=== PATIENT | female | born 1990 | race Caucasian/White ===

== ENCOUNTER 2016-11-10 12:00 | Emergency (ER) | payer OTHER ==
[2016-11-10] MEDS ORDERED: KETOROLAC TROMETHAMINE 10 MG TABLET PO ONE (14:15)
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
[2016-11-10 17:03] VITALS: BP 112/61
== END 2016-11-10 17:00 | disposition home or self-care (01) ==
LOC: ER 12:00
DX: S96.912A Strain of unspecified muscle and tendon at ankle and foot level, left foot, initial encounter (principal); S86.912A Strain of unspecified muscle(s) and tendon(s) at lower leg level, left leg, initial encounter; V47.5XXA Car driver injured in collision with fixed or stationary object in traffic accident, initial encounter; M54.2 Cervicalgia; F17.200 Nicotine dependence, unspecified, uncomplicated
CPT/HCPCS: 99284; 73610; 73562; J3490

== ENCOUNTER 2016-11-12 14:34 | Emergency (ER) | payer OTHER ==
[2016-11-12] MEDS ORDERED: ONDANSETRON 4 MG TAB.RAPDIS PO ONE (14:50)
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
[2016-11-12 18:37] VITALS: BP 113/67
== END 2016-11-12 18:25 | disposition home or self-care (01) ==
LOC: ER 14:34
DX: G44.209 Tension-type headache, unspecified, not intractable (principal); R11.2 Nausea with vomiting, unspecified; V87.7XXA Person injured in collision between other specified motor vehicles (traffic), initial encounter; F17.210 Nicotine dependence, cigarettes, uncomplicated
CPT/HCPCS: 99283; 70450; S0119

== ENCOUNTER 2017-01-02 18:37 | Emergency (ER) | payer OTHER ==
--- NOTE | 2017-01-02 18:53 | ER Document Report ---
ED Medical Screen (RME) - General Stated Complaint: VAGINAL BLEEDING, ABDOMINAL PAIN Mode of Arrival: Ambulatory Information source: Patient Notes: History presents to the emergency department with abdominal pain vaginal bleeding. Patient is . . Patient reports ~10 weeks , first OB appointment with [facility] next Wed. No care yet. I have greeted and performed a rapid initial assessment of this patient. A comprehensive ED assessment and evaluation of the patient, analysis of test results and completion of the medical decision making process will be conducted by additional ED providers. TRAVEL OUTSIDE OF THE [place] IN LAST 30 DAYS: No - Related Data Allergies/Adverse Reactions: No Known Allergies Allergy (Verified 11/10/16 12:12) Past Medical History Past Surgical History: Reports: Hx Cholecystectomy - Immunizations Hx Diphtheria, Pertussis, Tetanus Vaccination: No Physical Exam - Vital signs Vitals: Temp Pulse Resp BP Pulse Ox 98.2 F 96 16 122/71 99 01/02/17 18:48 01/02/17 18:48 01/02/17 18:48 01/02/17 18:48 01/02/17 18:48 Course - Vital Signs Vital signs: Temp Pulse Resp BP Pulse Ox 98.2 F 96 16 122/71 99 01/02/17 18:48 01/02/17 18:48 01/02/17 18:48 01/02/17 18:48 01/02/17 18:48
[2017-01-02 19:26] LABS: ABSOLUTE EOSINOPHILS # (AUTO) 0.1 10^3/uL (0.0-0.6); ABSOLUTE LYMPHOCYTES (AUTO) 2.3 10^3/uL (0.5-4.7); ABSOLUTE MONOCYTES (AUTO) 0.5 10^3/uL (0.1-1.4); BASOPHILS % (AUTO) 0.5 % (0-2); HEMATOCRIT 36.2 % (36.0-47.0); HEMOGLOBIN 12.6 g/dL (12.0-15.5); HGB HCT DIFFERENCE 1.6; LYMPHOCYTES % (AUTO) 25.6 % (13-45); MEAN CORPUSCULAR HEMOGLOBIN 31.3 pg (27.0-33.4); MEAN CORPUSCULAR HGB CONC 34.7 g/dL (32.0-36.0); MEAN CORPUSCULAR VOLUME 90 fl (80-97); MONOCYTES % (AUTO) 5.9 % (3-13); RED BLOOD COUNT 4.02 10^6/uL (3.72-5.28); RED CELL DISTRIBUTION WIDTH 12.6 % (11.5-14.0)
[2017-01-02 19:40] LABS: APPEARANCE,URINE SLIGHTLY-CLOUDY; BILIRUBIN,URINE NEGATIVE (NEGATIVE); GLUCOSE, URINE NEGATIVE (NEGATIVE); KETONES,URINE NEGATIVE (NEGATIVE); LEUKOCYTE ESTERASE,URINE NEGATIVE (NEGATIVE); NITRITE,URINE NEGATIVE (NEGATIVE); PROTEIN,URINE NEGATIVE (NEGATIVE); URINE SPECIFIC GRAVITY 1.024; UROBILINOGEN,URINE NEGATIVE mg/dL (<2.0)
[2017-01-02 19:41] LABS: ALANINE AMINOTRANSFERASE 50 U/L (9-52); ALBUMIN 4.2 g/dL (3.5-5.0); ALKALINE PHOSPHATASE 56 U/L (38-126); ANION GAP 14 (5-19); ASPARTATE AMINO TRANSFERASE 24 U/L (14-36); BILIRUBIN,TOTAL 0.4 mg/dL (0.2-1.3); BLOOD UREA NITROGEN 13 mg/dL (7-20); CALCIUM 9.6 mg/dL (8.4-10.2); CARBON DIOXIDE 21 mmol/L (22-30); CHLORIDE 102 mmol/L (98-107); CREATININE RESULT 0.59 mg/dL (0.52-1.25); GLUCOSE 97 mg/dL (75-110); POTASSIUM 3.7 mmol/L (3.6-5.0); SODIUM 137.2 mmol/L (137-145)
--- NOTE | 2017-01-02 20:53 | ER Document Report ---
ED GI/ - General Chief Complaint: Vag Bleeding, +preg <12wks Stated Complaint: VAGINAL BLEEDING, ABDOMINAL PAIN Time seen by provider: 20:50 Mode of Arrival: Ambulatory Information source: Patient TRAVEL OUTSIDE OF THE [place] IN LAST 30 DAYS: No - HPI Patient complains to provider of: , Vaginal bleeding Onset: This morning Timing/Duration: Better Quality of pain: Burning Severity at maximum: Mild Severity in ED: None Pain Level: 0 Location: Suprapubic Vaginal bleeding (Compared to normal period): Spotting Associated symptoms: None Exacerbated by: Denies Relieved by: Denies Similar symptoms previously: No Recently seen / treated by doctor: No Notes: 01/02/17 20:51 Patient is a 26-year-old female presenting to the emergency room complaining of vaginal spotting that started earlier today, with mild pelvic cramping, states she is approximately 10 weeks , has her first appointment with [facility] this coming Wednesday, patient is a with no previous complications, denies any other symptoms at present time - Related Data Allergies/Adverse Reactions: No Known Allergies Allergy (Verified 01/02/17 18:52) Past Medical History - General Information source: Patient - Social History Smoking Status: Former Smoker Chew tobacco use (# tins/day): No Frequency of alcohol use: None Drug Abuse: None Family History: Reviewed & Not Pertinent Patient has suicidal ideation: No Patient has homicidal ideation: No Renal/ Medical History: Denies: Hx Peritoneal Dialysis Past Surgical History: Reports: Hx Cholecystectomy - Immunizations Hx Diphtheria, Pertussis, Tetanus Vaccination: No Review of Systems - Review of Systems Constitutional: No symptoms reported EENT: No symptoms reported Cardiovascular: No symptoms reported Respiratory: No symptoms reported Gastrointestinal: No symptoms reported Genitourinary: No symptoms reported Female Genitourinary: See HPI Musculoskeletal: No symptoms reported Skin: No symptoms reported Hematologic/Lymphatic: No symptoms reported Neurological/Psychological: No symptoms reported -: Yes All other systems reviewed and negative Physical Exam - Vital signs Vitals: Temp Pulse Resp BP Pulse Ox 98.2 F 96 16 122/71 99 01/02/17 18:48 01/02/17 18:48 01/02/17 18:48 01/02/17 18:48 01/02/17 18:48 Interpretation: Normal - General General appearance: Appears well, Alert - HEENT Head: Normocephalic, Atraumatic Eyes: Normal Pupils: PERRL - Respiratory Respiratory status: No respiratory distress Chest status: Nontender Breath sounds: Normal Chest palpation: Normal - Cardiovascular Rhythm: Regular Heart sounds: Normal auscultation Murmur: No - Abdominal Inspection: Normal Distension: No distension Bowel sounds: Normal Tenderness: Nontender Organomegaly: No organomegaly - Back Back: Normal, Nontender - Extremities General upper extremity: Normal inspection, Nontender, Normal color, Normal ROM , Normal temperature General lower extremity: Normal inspection, Nontender, Normal color, Normal ROM , Normal temperature, Normal weight bearing. No: April's sign - Neurological Neuro grossly intact: Yes Cognition: Normal Orientation: AAOx4 Nilda Coma Scale Eye Opening: Spontaneous Nilda Coma Scale Verbal: Oriented Nilda Coma Scale Motor: Obeys Commands Nilda Coma Scale Total: 15 Speech: Normal Motor strength normal: LUE, RUE, LLE, RLE Sensory: Normal - Psychological Associated symptoms: Normal affect, Normal mood - Skin Skin Temperature: Warm Skin Moisture: Dry Skin Color: Normal Course - Re-evaluation Re-evalutation: 01/02/17 20:52 Abdomen is soft and nontender, lab and imaging findings discussed with patient at bedside which are relatively unremarkable and consistent with a positive IUP measuring 10 weeks and 2 days, patient was advised to keep her appointment at [facility] that has been scheduled for Wednesday, or return if her symptoms worsen in any way, patient acknowledges understanding and agreement with this plan - Vital Signs Vital signs: Temp Pulse Resp BP Pulse Ox 98.2 F 96 16 122/71 99 01/02/17 18:48 01/02/17 18:48 01/02/17 18:48 01/02/17 18:48 01/02/17 18:48 - Laboratory Result Diagrams: 01/02/17 19:10 01/02/17 19:10 Laboratory results interpreted by me: 01/02/17 01/02/17 19:10 19:10 Carbon Dioxide 21 L Beta HCG, Quant 18653.00 H Urine Blood LARGE H - Diagnostic Test Radiology reviewed: Image reviewed, Reports reviewed Discharge - Discharge Clinical Impression: Vaginal bleeding before 22 weeks gestation Condition: Stable Disposition: HOME, SELF-CARE Instructions: Bleeding During Early ([facility]), ([facility]), Pelvic Pain in ([facility]) Additional Instructions: Follow up with your [facility] on Wednesday as scheduled. Return to the nearest emergency room immediately if symptoms worsen or any additional concerns.
[2017-01-02 21:08] VITALS: BP 124/62
== END 2017-01-02 21:06 | disposition home or self-care (01) ==
LOC: ER 18:37
DX: O20.9 Hemorrhage in early pregnancy, unspecified (principal); Z3A.10 10 weeks gestation of pregnancy; Z90.49 Acquired absence of other specified parts of digestive tract
CPT/HCPCS: 36415; 76817; 80053; 81001; 84702; 85025; 86850; 86900; 86901; 99284

== ENCOUNTER 2019-01-18 22:58 | Emergency (ER) | payer BC ==
[2019-01-18 23:06] VITALS: BP 136/97
--- NOTE | 2019-01-18 23:07 | ER Document Report ---
ED Medical Screen (RME) - General Chief Complaint: Abdominal Pain Stated Complaint: SEVERE BACK PAIN,ABDOMINAL PAIN Time Seen by Provider: 01/18/19 23:06 Primary Care Provider: CHRISTY MOREAU DO [Primary Care Provider] - Follow up as needed Mode of Arrival: Ambulatory Information source: Patient Notes: pt c/o severe left flank pain, hx recent URI's in a row. reports low grade fever I have greeted and performed a rapid initial assessment of this patient. A comprehensive ED assessment and evaluation of the patient, analysis of test results and completion of the medical decision making process will be conducted by additional ED providers. TRAVEL OUTSIDE OF THE [place] IN LAST 30 DAYS: No - Related Data Allergies/Adverse Reactions: No Known Allergies Allergy (Verified 01/02/17 18:52) Past Medical History Renal/ Medical History: Denies: Hx Peritoneal Dialysis Past Surgical History: Reports: Hx Cholecystectomy - Immunizations Hx Diphtheria, Pertussis, Tetanus Vaccination: No Physical Exam - Vital signs Vitals: Temp Pulse Resp BP Pulse Ox 97.5 F 75 18 136/97 H 100 01/18/19 23:04 01/18/19 23:04 01/18/19 23:04 01/18/19 23:04 01/18/19 23:04 Course - Vital Signs Vital signs: Temp Pulse Resp BP Pulse Ox 97.5 F 75 18 136/97 H 100 01/18/19 23:04 01/18/19 23:04 01/18/19 23:04 01/18/19 23:04 01/18/19 23:04 Doctor's Discharge - Discharge Referrals: CHRISTY MOREAU DO [Primary Care Provider] - Follow up as needed
--- NOTE | 2019-01-19 00:38 | RADIOLOGY REPORT (SQ) ---
EXAM DESCRIPTION: CT ABDOMEN PELVIS WITHOUT IV CONTRAST COMPLETED DATE/TME: 01/19/2019 00:00 CLINICAL HISTORY: 28 years, Female, LEFT flank pain COMPARISON: None. TECHNIQUE: Axial CT images of the abdomen and pelvis were obtained without contrast. Sagittal and coronal reformats were performed. DLP 542 Images stored on PACS. All CT scanners at this facility use dose modulation, iterative reconstruction, and/or weight based dosing when appropriate to reduce radiation dose to as low as reasonably achievable (ALARA). [facility]: Dose Right [facility]: CareDose [facility]: Dose Right [facility]: Teradose 4D [facility]: FitVia LIMITATIONS: None. FINDINGS: The lung bases are clear. Cholecystectomy. The liver, pancreas, spleen, and adrenal glands appear unremarkable. Both kidneys appear unremarkable. There is no evidence of urolithiasis or hydronephrosis. There is no intraperitoneal free air or fluid. There is no lymphadenopathy. The abdominal aorta is normal in caliber. The stomach, small bowel, and appendix appear unremarkable. The colon contains a moderate amount of stool. The uterus, adnexa, and urinary bladder appear unremarkable. There are no lytic or blastic bone lesions. IMPRESSION: No acute findings. No urolithiasis or hydronephrosis. TECHNICAL DOCUMENTATION: Quality ID # [id number]: Final reports with documentation of one or more dose reduction techniques (e.g., Automated exposure control, adjustment of the mA and/or kV according to patient size, use of iterative reconstruction technique) copyright 2010 [employer]- All Rights Reserved
[2019-01-19] MEDS ORDERED: ACETAMINOPHEN 325 MG TABLET PO ONE (01:01)
[2019-01-19 01:50] LABS: APPEARANCE,URINE SLIGHTLY-CLOUDY; BILIRUBIN,URINE SMALL (NEGATIVE); COLOR,URINE YELLOW; GLUCOSE, URINE NEGATIVE (NEGATIVE); KETONES,URINE NEGATIVE (NEGATIVE); LEUKOCYTE ESTERASE,URINE TRACE (NEGATIVE); NITRITE,URINE NEGATIVE (NEGATIVE); PROTEIN,URINE NEGATIVE (NEGATIVE); URINE SPECIFIC GRAVITY 1.031
[2019-01-19 03:45] LABS: ABSOLUTE EOSINOPHILS # (AUTO) 0.1 10^3/uL (0.0-0.6); ABSOLUTE LYMPHOCYTES (AUTO) 1.9 10^3/uL (0.5-4.7); ABSOLUTE MONOCYTES (AUTO) 0.6 10^3/uL (0.1-1.4); ABSOLUTE NEUT (AUTO) 4.5 10^3/uL (1.7-8.2); BASOPHILS % (AUTO) 0.3 % (0-2); EOSINOPHILS % (AUTO) 1.1 % (0-6); HEMATOCRIT 40.9 % (36.0-47.0); LYMPHOCYTES % (AUTO) 27.2 % (13-45); MEAN CORPUSCULAR HEMOGLOBIN 30.4 pg (27.0-33.4); MEAN CORPUSCULAR HGB CONC 34.3 g/dL (32.0-36.0); MEAN CORPUSCULAR VOLUME 89 fl (80-97); PLATELET COUNT 317 10^3/uL (150-450); RED BLOOD COUNT 4.61 10^6/uL (3.72-5.28); RED CELL DISTRIBUTION WIDTH 13.3 % (11.5-14.0); SEGMENTED NEUTROPHILS % (AUTO) 63.4 % (42-78); TOTAL CELLS COUNTED % (AUTO) 100 %; WHITE BLOOD COUNT 7.1 10^3/uL (4.0-10.5)
[2019-01-19 04:03] LABS: ALANINE AMINOTRANSFERASE 27 U/L (9-52); ALBUMIN 4.5 g/dL (3.5-5.0); ALKALINE PHOSPHATASE 55 U/L (38-126); ANION GAP 9 (5-19); ASPARTATE AMINO TRANSFERASE 21 U/L (14-36); BILIRUBIN,DIRECT 0.3 mg/dL (0.0-0.4); BILIRUBIN,TOTAL 0.5 mg/dL (0.2-1.3); BLOOD UREA NITROGEN 12 mg/dL (7-20); CALCIUM 9.6 mg/dL (8.4-10.2); CARBON DIOXIDE 26 mmol/L (22-30); CHLORIDE 104 mmol/L (98-107); GLUCOSE 102 mg/dL (75-110); SODIUM 138.5 mmol/L (137-145); TOTAL PROTEIN 7.3 g/dL (6.3-8.2)
== END 2019-01-19 05:14 | disposition left against medical advice (07) ==
LOC: ER 22:58
DX: R10.9 Unspecified abdominal pain (principal); R50.9 Fever, unspecified; Z90.49 Acquired absence of other specified parts of digestive tract; Z53.20 Procedure and treatment not carried out because of patient's decision for unspecified reasons
CPT/HCPCS: 36415; 74176; 80053; 81001; 84703; 85025; 99281

== ENCOUNTER 2019-07-27 19:13 | Outpatient (CLI) | payer BC ==
[2019-07-27 20:17] LABS: APPEARANCE,URINE SLIGHTLY-CLOUDY; BILIRUBIN,URINE NEGATIVE (NEGATIVE); COLOR,URINE YELLOW; GLUCOSE, URINE NEGATIVE (NEGATIVE); KETONES,URINE NEGATIVE (NEGATIVE); LEUKOCYTE ESTERASE,URINE TRACE (NEGATIVE); NITRITE,URINE NEGATIVE (NEGATIVE); PROTEIN,URINE 100 mg/dL (NEGATIVE); URINE SPECIFIC GRAVITY 1.016; UROBILINOGEN,URINE NEGATIVE mg/dL (<2.0)
[2019-07-27 20:24] LABS: URINE AMPHETAMINES SCREEN NEGATIVE; URINE BARBITURATES SCREEN NEGATIVE; URINE BENZODIAZEPINES SCREEN NEGATIVE; URINE COCAINE SCREEN NEGATIVE; URINE MARIJUANA (THC) SCREEN NEGATIVE; URINE METHADONE SCREEN NEGATIVE; URINE PHENCYCLIDINE SCREEN NEGATIVE
--- NOTE | 2019-07-27 22:30 | RADIOLOGY REPORT (SQ) ---
EXAM DESCRIPTION: US LIMITED COMPLETED DATE/TME: 07/27/2019 00:00 CLINICAL HISTORY: 29 years, Female, cervical length, r/o abruption, well being COMPARISON: None. TECHNIQUE: Limited OB ultrasound LIMITATIONS: None. FINDINGS: There is a single, live intrauterine gestation in the cephalic presentation. Cervical length is 3 cm. Largest ventral pocket 2.2 cm. heart tones 162 bpm. Ultrasound age 21 weeks 0 days. The placenta is fundal in location with a grade 1/2 echotexture. Note is made of 2 distinct placental lakes. However no sonographic evidence for abruption. Subjective assessment of the amniotic fluid volume is diminished IMPRESSION: Single, live IUP in the cephalic presentation. Ultrasound age 21 weeks 0 days. Subjective low amniotic fluid volume. Largest ventral pocket is 2.2 cm. There are 2 distinct placental lakes. The placenta is otherwise grossly unremarkable copyright 2010 [employer]- All Rights Reserved
== END 2019-07-27 22:43 | disposition home or self-care (01) ==
LOC: LC 19:13
PROVIDERS: ATTEND Obstetrics & Gynecology Gynecology
PROC: 4A1HXCZ Monitoring of Products of Conception, Cardiac Rate, External Approach (ICD-10-PCS; principal; 2019-07-27)
DX: O47.02 False labor before 37 completed weeks of gestation, second trimester (principal); Z3A.21 21 weeks gestation of pregnancy
CPT/HCPCS: 76815; 80307; 81001